=== PATIENT | female | born 1980 | race Caucasian/White ===

== ENCOUNTER → 2016-08-05 | Outpatient (CLI) | payer OTHER ==
[~2016-08-05] MED LIST: CARAFATE1 GM PO; CLOMID OR; FLAGYL 500MG.500 MG PO; FLEXERIL10 MG PO; FLEXERIL5 MG PO; FLONASE 50 MCG16 GM; IBUPROFEN800 MG PO; LORTAB 5/500 501 TAB PO; MAXZIDE 25 MG-31 TAB PO; METFORMIN1000 MG PO; MOTRIN 400MG.400 MG PO; MOTRIN PO; OLANZAPINE5 MG PO; PHENERGAN 25MG.25 M1 PO; PRENATAL PLUS1 TA1 PO; TORADOL10 MG PO; ZOFRAN4 MG PO; Zofran4 MG PO
[2016-08-08 07:41] LABS: EPSTEIN-BARR NUCLEAR AG IGG 548 (<1.10)
[2016-08-08 07:42] LABS: EBV CAPSID ANTIGEN IGM <36.0 (<1.10)
== END ==
LOC: LAB 17:16
PROVIDERS: Nurse Practitioner Family
DX: J02.0 Streptococcal pharyngitis (principal)